=== PATIENT | male | born 2000 | race Two or more races ===

== ENCOUNTER → 2024-11-10 | Outpatient (CLI) | payer OTHER ==
--- NOTE | 2024-11-11 10:32 | HMCIMG ---
CT UPPER EXT W/O CONTRAST REASON: Pain in left arm COMPARISON: None TECHNIQUE: Axial images are obtained from above the shoulder through the upper forearm. Sagittal and coronal reconstruction images were then performed. FINDINGS: Bones of the shoulder appear unremarkable. AC joint appears normal as does glenohumeral joint space. There is no evidence of joint effusion. Muscles of the shoulder appear unremarkable. Bones and muscles of the upper arm appear unremarkable as does the elbow. IMPRESSION: 1. Normal CT of the left upper arm and the elbow and the shoulder.
== END | disposition home or self-care (01) ==
LOC: RAH 10:19 → EEVIPCON 11:00
PROVIDERS: ATTEND Family Medicine
DX: M79.602 Pain in left arm (principal)
CPT/HCPCS: 73200